=== PATIENT | male | born 1935 | race Caucasian/White ===

== ENCOUNTER 2017-11-10 11:29 | Emergency (ER) | payer MEDICARE, MEDICAID ==
[~2017-11-10] VITALS: Ht 149.9 cm; Wt 41.0 kg
[~2017-11-10 11:29] MED LIST: CLON.1 PO; ENOX30P SQ; LORTA5 PO; METO25CR PO; TAMS.4 PO; Z.0.COMMODE-3:1; Z.0.WALKERFRONT
[2017-11-10 11:46] VITALS: BP 162/68; PULSE 65; RESP 16; TEMP 97.5; O2SAT 100
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
[2017-11-10 12:42] VITALS: BP 170/72; PULSE 57; RESP 18; O2SAT 100
[2017-11-10 12:48] LABS: AUTOMATED NEUTROPHIL # 2.9 TH/MM3 (1.8-7.7); BASOPHIL % 0.9 % (0.0-2.0); EOSINOPHIL # 0.2 TH/MM3 (0-0.4); EOSINOPHIL % 4.9 % (0.0-4.0); HEMOGLOBIN 10.3 GM/DL (13.0-17.0); LYMPH % 20.3 % (9.0-44.0); LYMPHOCYTE # 0.9 TH/MM3 (1.0-4.8); MEAN CELL VOLUME 84.2 FL (80.0-100.0); MEAN CORPUSCULAR HEMOGLOBIN 27.1 PG (27.0-34.0); MEAN CORPUSCULAR HGB CONC 32.2 % (32.0-36.0); MEAN PLATELET VOLUME 6.9 FL (7.0-11.0); MONO % 10.7 % (0.0-8.0); MONOCYTE # 0.5 TH/MM3 (0-0.9); NEUT % 63.2 % (16.0-70.0); PLATELET COUNT 202 TH/MM3 (150-450); RED CELL DISTRIBUTION WIDTH 16.3 % (11.6-17.2); WHITE BLOOD COUNT 4.6 TH/MM3 (4.0-11.0)
[2017-11-10 12:58] LABS: INTERNATIONAL NORMALIZED RATIO 1.1 RATIO; PROTHROMBIN TIME - PATIENT 10.7 SEC (9.8-11.6)
--- NOTE | 2017-11-10 13:10 | RADRPT ---
EXAM DATE/TIME: 11/10/2017 12:32 [facility] COMPARISON: No previous studies available for comparison. INDICATIONS : Right foot pain; no known injury. MEDICAL HISTORY : None. SURGICAL HISTORY : None. ENCOUNTER: Initial ACUITY: 1 day PAIN SCORE: 0/10 LOCATION: Right foot. FINDINGS: Three view examination of the right foot demonstrates no soft tissue swelling, dislocation, or fractu re. The tarsal bones appear intact. The interphalangeal and metatarsophalangeal joints are intact. The calcaneus is intact. Bony mineralization is normal. CONCLUSION: 1. Unremarkable radiographs of the right foot. Zander Navarro MD on November 10, 2017 at 13:06 Board Certified Radiologist. This report was verified electronically.
[2017-11-10 13:21] LABS: ALKALINE PHOSPHATASE 87 U/L (45-117); ALT (GPT) 23 U/L (12-78); TOTAL BILIRUBIN ADULT 0.5 MG/DL (0.2-1.0); TOTAL PROTEIN 7.4 GM/DL (6.4-8.2); TROPONIN I LESS THAN 0.02 NG/ML (0.02-0.05)
--- NOTE | 2017-11-10 13:28 | RADRPT ---
EXAM DATE/TIME: 11/10/2017 12:59 [facility] COMPARISON: No previous studies available for comparison. INDICATIONS : Right leg swelling. MEDICAL HISTORY : Colon cancer. SURGICAL HISTORY : Colostomy. Port placement. ENCOUNTER: Initial ACUITY: 3 days PAIN SCORE: 2/10 LOCATION: Right leg. TECHNIQUE: Venous ultrasound of the leg was performed from the inguinal ligament to the proximal calf. Real-fidel e, color Doppler and spectral tracing, compression and augmentation techniques were used. FINDINGS: There is normal compressibility of the deep venous system from the inguinal region to the proximal ca lf. No echogenic clot is seen in the lumen of the common femoral, femoral, popliteal, and posterior tibial veins. There is a normal response of the venous system to proximal and distal augmentation an d respiration. CONCLUSION: Negative for deep venous thrombosis. Josue Hackett MD FACR on November 10, 2017 at 13:22 Board Certified Radiologist. This report was verified electronically.
[2017-11-10 13:30] LABS: ALBUMIN 2.7 GM/DL (3.4-5.0); AST (GOT) 37 U/L (15-37); BICARBONATE 26.7 MEQ/L (21.0-32.0); BLOOD UREA NITROGEN 17 MG/DL (7-18); CALCIUM 8.1 MG/DL (8.5-10.1); CHLORIDE 111 MEQ/L (98-107); CREATININE 1.24 MG/DL (0.60-1.30); GLOMERULAR FILTRATION RATE 56 ML/MIN (>89); GLUCOSE,RANDOM 79 MG/DL (74-106); SODIUM (NA) 144 MEQ/L (136-145)
[2017-11-10] MEDS ORDERED: IOHEXOL 350 MG/ML 100 ML BTL (for RAD DIAG) IVCONTRAST ONE (15:01)
--- NOTE | 2017-11-10 16:16 | RADRPT ---
EXAM DATE/TIME: 11/10/2017 14:34 [facility] COMPARISON: No previous studies available for comparison. INDICATIONS : Right foot pain IV CONTRAST: 100 cc Omnipaque 350 (iohexol) IV RADIATION DOSE: 5.91 CTDIvol (mGy) MEDICAL HISTORY : Carcinoma, colon. SURGICAL HISTORY : Colostomy. ENCOUNTER: Initial ACUITY: 1 day PAIN SCALE: 6/10 LOCATION: Right foot TECHNIQUE: Volumetric scanning was performed using a multi-row detector CT scanner. The data was post processed with a variety of visualization algorithms including full volume maximum intensity projection, multi -planar sliding thin slab reformation, curved planar reformation, and surface rendering techniques. Using automated exposure control and adjustment of the mA and/or kV according to patient size, radiat ion dose was kept as low as reasonably achievable to obtain optimal diagnostic quality images. DICO M format image data is available electronically for review and comparison. FINDINGS: ABDOMINAL AORTA: Atherosclerotic regularity of the abdominal aorta the vessel is normal in caliber throughout its amos th without aneurysmal disease. Mesenteric vessels are patent. Main and accessory renal arteries bilat erally. There appears to be a significant, greater than 60% ostial stenosis of the main right renal a rtery. The other 3 vessels. PELVIS: Atherosclerotic irregularity of the iliac arteries bilaterally with a mild central stenosis of the ri ght common femoral. We do not see significant inflow stenosis in either lower extremity, however. Right lower extremity: Common femoral shows calcification but is patent. Profunda femoris SFA shows some atherosclerotic irr egularity but are patent and the popliteal. The popliteal is patent down to the trifurcation vessels. I believe there is a single vessel runoff via the anterior tibial although, even on the delayed imag es, the contrast bolus is limited distally Left lower extremity: Greater than 50% ostial stenosis of the profunda. The SFA is diminutive proximally but remains patent . Segmental high grade stenosis in the distal SFA and [id number] popliteal near the adductor hiat us trauma certainly flow limiting the trifurcation vessels. The popliteal is otherwise irregular with segmental stenosis but patent and the trifurcation. Again, I believe there is three-vessel runoff bu t the contrast bolus is limited distally. Miscellaneous: There appears be an pectus excavating deformity of the lower chest. Patient has a colostomy in the le ft lower abdominal quadrant. Benign-appearing 1.2 cm cortical cyst in the junction of the mid and low er pole of the left kidney posteriorly. Urinary bladder is distended with contrast and urine. Right s ided hydrocele. Degenerative spurring and hypertrophy of the facet articulations at the lumbosacral j unction. Left total hip arthroplasty. CONCLUSION: 1. There is some mild atherosclerotic irregularity of the right common iliac artery. Profunda, SFA an d popliteal are patent and I believe there is a single runoff via the anterior tibial although the co ntrast bolus is limited distally. 2. On the left, however there appears to be a significant ostial stenosis of the profunda with segmen john high grade stenosis in the distal SFA and proximal [id number] popliteal which is almost certa inly flow limiting to the runoff vessels. There appears to be three-vessel runoff on the left but aga in, the contrast bolus is limited distally. 3. 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 The accessory right as well as th e main and left renal arteries are otherwise patent. 4. Colostomy in the left lower abdominal quadrant. Benign-appearing cortical cyst posteriorly in the left kidney. Left total hip arthroplasty. 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 Hernan Blunt MD on November 10, 2017 at 16:00 Board Certified Radiologist. This report was verified electronically.
[2017-11-10 17:16] VITALS: BP 168/72; PULSE 70; RESP 16; O2SAT 99
[2017-11-10 17:20] VITALS: BP 168/72
== END 2017-11-10 18:00 | disposition home or self-care (01) ==
LOC: NEPD 11:29
DX: M79.604 Pain in right leg (principal); I73.9 Peripheral vascular disease, unspecified; Z87.891 Personal history of nicotine dependence; Z85.038 Personal history of other malignant neoplasm of large intestine
CPT/HCPCS: 73630; 75635; 80053; 84484; 85025; 85610; 85730; 93971; 99285; Q9967